=== PATIENT | female | born 1990 | race Two or more races ===

== ENCOUNTER 2019-09-03 06:24 | Emergency (ER) | payer OTHER ==
[2019-09-03 07:51] VITALS: TEMP 98; BMI 27.4
[2019-09-03] MEDS ORDERED: guaiFENesin/CODEINE 10 ML UNIT-DOSE CUPS PO ONE (08:04)
[2019-09-03] MEDS ORDERED: guaiFENesin/CODEINE 5 ML UNIT-DOSE CUPS PO ONE (08:16)
--- NOTE | 2019-09-03 08:17 | PDOC ---
History of Present Illness - General Chief Complaint: Cold Symptoms Stated Complaint: COUGH,SORE THROAT Time Seen by Provider: 09/03/19 07:37 History Source: Patient Exam Limitations: No Limitations - History of Present Illness Initial Comments: 09/03/19 08:10 HPI: 28yo F PMH gastric band 4 months ago, presenting with flu symptoms since Saturday. States she has the flu, symptoms including: sweating, cough, body aches , STREET, subjective fevers. Reports two sick contacts with similar symptoms around the same time. She also endorses some mild nausea and 2 episodes of NBNB emesis , reporting that this is not new for her and has been discussed with her surgeon since her band placement. Denies abdominal pain, any blood in emesis or rectum, or any changes in these symptoms. All: NKDA Meds: Denies PMH: Denies PSH: Gastric Band Past History - Past Medical History Allergies/Adverse Reactions: Allergies Allergy/AdvReac Type Severity Reaction Status Date / Time No Known Allergies Allergy Verified 09/03/19 08:12 Home Medications: Ambulatory Orders Guaifenesin AC [Robitussin AC -] 5 ml PO Q6H PRN #60 ml MDD 20 mL 09/03/19 Omeprazole 20 mg PO DAILY 09/03/19 COPD: No - Psycho Social/Smoking Cessation Hx Smoking History: Never smoked Hx Alcohol Use: Yes (socially) Drug/Substance Use Hx: No Review of Systems - Review of Systems Able to Perform ROS?: Yes Is the patient limited Togolese proficient: Yes Constitutional: Yes: Chills, Fever. No: Diaphoresis, Weakness HEENTM: Yes: Throat Pain. No: Recent change in vision, Nose Congestion Respiratory: Yes: Cough. No: Shortness of Breath, Stridor, Wheezing, Productive cough Cardiac (ROS): No: Chest Pain, Irregular Heart Rate, Palpitations, Syncope, Chest Tightness ABD/GI: No: Constipated, Diarrhea, Nausea, Poor Appetite, Poor Fluid Intake, Vomiting : No: Burning, Dysuria, Frequency Musculoskeletal: Yes: Muscle Pain ("bodyaches") Integumentary: No: Dryness, Pruritus, Rash Neurological: Yes: Headache. No: Numbness, Tingling, Weakness Psychiatric: No: Stressors, Change in Appetite Hematologic/Lymphatic: No: Anemia, Blood Clots, Easy Bleeding All Other Systems: Reviewed and Negative *Physical Exam - Vital Signs Last Vital Signs Temp Pulse Resp BP Pulse Ox 98 F 96 H 20 117/87 100 09/03/19 07:00 09/03/19 07:00 09/03/19 07:00 09/03/19 07:00 09/03/19 07:00 - Physical Exam 09/03/19 08:12 Vitals reviewed, AFVSS GEN: Coughing, otherwise well-appearing, appears stated age, NAD. AAOx3. HEENT: NCAT, EOMI, PERRL. Sclera anicteric, noninjected. No facial asymmetry. Moist mucous membranes. Normal voice. Trachea midline. CV: RRR, S1/S2, no murmurs / rubs / gallops appreciated. LUNG: CTAB, normal work of breathing. No wheezes, rales, rhonchi. +cough. Speaking full sentences. GI: Soft, NTND, no guarding, no rebound. No masses. Neg CVAT b/l. EXTREMITIES: 2+ distal pulses. No LE edema. No obvious deformities of all extremities. SKIN: Warm, dry, no rashes appreciated, non-jaundiced. PSYCH: Normal mood and affect. Cooperative and appropriate. NEURO: CN grossly intact. Moving all extremities well. Normal strength and sensation grossly. Medical Decision Making - Medical Decision Making 09/03/19 08:18 28yo F PMH gastric band 4 months ago, presenting with flu symptoms since Saturday. History notable for short course, sick contacts, classic influenza symptoms. Exam with normal heart, lungs, and abdomen. DDX: Influenza, other viral URI, less likely RSV, unlikely bacterial PNA. - Robitussin AC 10 mg 09/03/19 08:32 Dispo: Home Discharge - Discharge Information Problems reviewed: Yes Clinical Impression/Diagnosis: Viral URI with cough Condition: Fair Disposition: HOME - Admission No - Additional Discharge Information Prescriptions: Guaifenesin AC [Robitussin AC -] 5 ml PO Q6H PRN #60 ml MDD 20 mL PRN Reason: Cough - Follow up/Referral - Patient Discharge Instructions Patient Printed Discharge Instructions: How to Avoid a Cold or Flu, DI for Viral Upper Respiratory Infection -- Adult Additional Instructions: You were seen and evaluated in the [facility]. Please continue to take over the counter medication for your symptoms (Tylenol and Motrin for fever/pain) - Motrin may work better for your specific pain. Always take these as directed on the package labels. Do not take Dayquil/Nyquil with Tylenol as this may be dangerous for your liver. Viral illnesses self resolve with rest, symptom management, and fluids. A prescription for Robitussin has been sent to your pharmacy. Please pick this up and take it as directed for your cough. Do not operate motor vehicles while on this medication. Please follow up with your primary care doctor in the next 2-3 days for continued evaluation. Return to the ED for any new or concerning symptoms. - Post Discharge Activity Work/Back to School Note: Back to Work
--- NOTE | 2019-09-03 08:39 | PDOC ---
Attending Attestation - Resident Resident Name: Mario Bryant - ED Attending Attestation I have performed the following: I have examined & evaluated the patient, The case was reviewed & discussed with the resident, I agree w/resident's findings & plan, Exceptions are as noted - HPI HPI: 28 yo F presents with cough for past few days. +Sick contact- friend has similar symptoms, is currently in the ED for evaluation as well. She states she is having chest soreness and pain associated with the cough. Denies abd pain, vomiting, SOB. - Physicial Exam PE: GENERAL: Awake, alert, and fully oriented, in no acute distress HEAD: No signs of trauma EYES: PERRLA, EOMI, sclera anicteric, conjunctiva clear ENT: Auricles normal inspection, hearing grossly normal, nares patent, oropharynx clear without exudates. Moist mucosa NECK: Normal ROM, supple, no lymphadenopathy, JVD, or masses LUNGS: Breath sounds equal, clear to auscultation bilaterally. No wheezes, and no crackles HEART: Regular rate and rhythm, normal S1 and S2, no murmurs, rubs or gallops ABDOMEN: Soft, nontender, normoactive bowel sounds. No guarding, no rebound. No masses EXTREMITIES: Normal range of motion, no edema. No clubbing or cyanosis. No cords, erythema, or tenderness NEUROLOGICAL: Cranial nerves II through XII grossly intact. Normal speech, normal gait. Motor and sensation intact SKIN: Warm, dry, normal turgor, no rashes or lesions noted. - Medical Decision Making Sxs likely viral based on history as well as sick contact with similar symptoms. Will give robitussin AC for the cough, NSAID for soreness. DC home when improved.
[2019-09-03 08:50] VITALS: BP 109/67; PULSE 80
== END 2019-09-03 08:51 | disposition home or self-care (01) ==
LOC: JER 06:24
DX: J06.9 Acute upper respiratory infection, unspecified (principal); B97.89 Other viral agents as the cause of diseases classified elsewhere; Z98.84 Bariatric surgery status
CPT/HCPCS: 99281-25

== ENCOUNTER 2020-09-15 10:49 | Emergency (ER) | payer OTHER ==
[2020-09-15 11:12] VITALS: BP 111/58; PULSE 83; BMI 30.7
== END 2020-09-15 12:37 | disposition home or self-care (01) ==
LOC: JERFT 10:49
DX: S93.401A Sprain of unspecified ligament of right ankle, initial encounter (principal)
CPT/HCPCS: 73610-TC-RT-FY; 99283-25

== ENCOUNTER 2020-12-30 04:56 | Emergency (ER) | payer OTHER ==
[2020-12-30 05:22] VITALS: BMI 31.3
[2020-12-30] MEDS ORDERED: ACETAMINOPHEN 325 MG TABLET (FP) PO ONE (06:02)
[2020-12-30] MEDS ORDERED: ACETAMINOPHEN 325 MG TABLET (FP) ONE (06:10)
[2020-12-30 07:58] LABS: PH,URINE 5.5 (5.0-8.0); URINE APPEARANCE CLOUDY; URINE BILIRUBIN NEGATIVE (NEGATIVE); URINE COLOR YELLOW; URINE GLUCOSE (UA) NEGATIVE (NEGATIVE); URINE KETONE 2+ (NEGATIVE); URINE LEUK ESTERASE NEGATIVE (NEGATIVE); URINE NITRITE NEGATIVE (NEGATIVE); URINE PROTEIN NEGATIVE (NEGATIVE); URINE UROBILINOGEN 0.2 mg/dL (0.2-1.0)
[2020-12-30 08:22] VITALS: BP 104/53; PULSE 80; TEMP 98
== END 2020-12-30 08:22 | disposition home or self-care (01) ==
LOC: JER 04:56
DX: M25.552 Pain in left hip (principal); Z3A.13 13 weeks gestation of pregnancy
CPT/HCPCS: 76815; 81003; 87086; 99284-25

== ENCOUNTER 2021-03-18 18:54 | Emergency (ER) | payer OTHER ==
[2021-03-18 19:01] VITALS: BMI 34.9
[2021-03-18 19:53] VITALS: BP 119/56; PULSE 96; TEMP 98.7
== END 2021-03-18 22:49 | disposition home or self-care (01) ==
LOC: JER 18:54
DX: R10.2 Pelvic and perineal pain (principal)
CPT/HCPCS: 99283-25

== ENCOUNTER 2022-03-08 11:32 | Emergency (ER) | payer OTHER ==
[2022-03-08 11:47] VITALS: BP 102/68; PULSE 84; TEMP 97.6; BMI 35.0
[2022-03-08] MEDS ORDERED: SODIUM CHLORIDE 0.9% 500 ML INFUS.BAG IV ONE (12:34)
[2022-03-08] MEDS ORDERED: KETOROLAC TROMETHAMINE 30 MG/1 ML VIAL IVPB ONE (12:34)
[2022-03-08] MEDS ORDERED: METOCLOPRAMIDE HCL INJECTION 10 MG/2 ML VIAL IVPUSH ONE (12:34)
[2022-03-08] MEDS ORDERED: METOCLOPRAMIDE HCL INJECTION 10 MG/2 ML VIAL ONE (13:06)
[2022-03-08] MEDS ORDERED: KETOROLAC TROMETHAMINE 30 MG/1 ML VIAL ONE (13:06)
[2022-03-08 14:00] LABS: BASO % 0.3 % (0-2.0); EOS % 1.5 % (0-4.5); HEMATOCRIT 42.3 % (32.4-45.2); HEMOGLOBIN 13.8 GM/dL (10.7-15.3); LYMPH % 29.8 % (8-40); MCH 28.9 pg (25.7-33.7); MCHC 32.6 g/dl (32.0-36.0); MEAN CELL VOLUME 88.6 fl (80-96); MEAN PLT VOLUME 11.4 fl (7.5-11.1); MONO % 10.1 % (3.8-10.2); NEUT % 58.3 % (42.8-82.8); PLATELET COUNT 180 10^3/uL (134-434); RBC 4.77 M/mm3 (3.60-5.2); RDW 12.8 % (11.6-15.6); WHITE BLOOD COUNT 5.2 K/mm3 (4.0-10.0)
[2022-03-08 14:04] LABS: EPI CELLS >36 /uL (0-25.1); HYALINE CASTS 14 /uL (0-3.1); PH,URINE 5.5 (5.0-8.0); URINE APPEARANCE CLOUDY; URINE BACTERIA 278 /uL (0-1359); URINE BILIRUBIN NEGATIVE (NEGATIVE); URINE COLOR DK YELLOW; URINE GLUCOSE (UA) NEGATIVE (NEGATIVE); URINE KETONE 1+ (NEGATIVE); URINE LEUK ESTERASE NEGATIVE (NEGATIVE); URINE NITRITE NEGATIVE (NEGATIVE); URINE PROTEIN 2+ (NEGATIVE); URINE RBC 16 /uL (0-23.9)
[2022-03-08 14:05] LABS: HCG,QUALITATIVE URINE Negative
[2022-03-08 14:18] LABS: CALCIUM 9.7 mg/dL (8.5-10.1)
[2022-03-08 14:20] LABS: URINE WBC 63.3 /uL (0-25.8)
[2022-03-08 14:22] LABS: CREATININE 0.9 mg/dL (0.55-1.3)
[2022-03-08 14:23] LABS: TOT PROT 7.9 g/dl (6.4-8.2)
[2022-03-08 14:24] LABS: BILIRUBIN,TOTAL 0.8 mg/dL (0.2-1)
== END 2022-03-08 16:09 | disposition home or self-care (01) ==
LOC: JER 11:32
PROC: 3E0233Z Introduction of Anti-inflammatory into Muscle, Percutaneous Approach (ICD-10-PCS; principal; 2022-03-08)
PROC: 3E033NZ Introduction of Analgesics, Hypnotics, Sedatives into Peripheral Vein, Percutaneous Approach (ICD-10-PCS; 2022-03-08)
DX: R51.9 Headache, unspecified (principal)
CPT/HCPCS: 36415; 80053; 81003; 84703; 85025; 87086; 99284-25

== ENCOUNTER 2022-04-14 21:28 | Inpatient (IN) | payer OTHER ==
[2022-04-14] MEDS ORDERED: FAMOTIDINE 20 MG/50 ML IVPB 20 MG/50 ML MG IVPB ONE ×2 (23:00→23:39)
[2022-04-14] MEDS ORDERED: MAG HYDROX/AL HYDROX/SIMETH 30 ML UNIT-DOSE CUP PO ONE (23:00)
[2022-04-14] MEDS ORDERED: SODIUM CHLORIDE 0.9% 500 ML INFUS.BAG IV ONE (23:39)
[2022-04-14] MEDS ORDERED: MAG HYDROX/AL HYDROX/SIMETH 30 ML UNIT-DOSE CUP ONE (23:39)
[2022-04-15 00:46] LABS: BASO % 0.3 % (0-2.0); EOS % 0.9 % (0-4.5); HEMATOCRIT 37.1 % (32.4-45.2); HEMOGLOBIN 12.2 GM/dL (10.7-15.3); LYMPH % 26.6 % (8-40); MCHC 32.9 g/dl (32.0-36.0); MEAN CELL VOLUME 88.2 fl (80-96); MEAN PLT VOLUME 10.1 fl (7.5-11.1); MONO % 6.3 % (3.8-10.2); NEUT % 65.9 % (42.8-82.8); PLATELET COUNT 170 10^3/uL (134-434); RDW 13.3 % (11.6-15.6)
[2022-04-15 01:07] LABS: ALBUMIN 3.6 g/dl (3.4-5.0); BLOOD UREA NITROGEN 13.5 mg/dL (7-18); CALCIUM 9.4 mg/dL (8.5-10.1)
[2022-04-15 01:10] LABS: CREATININE 0.8 mg/dL (0.55-1.3)
[2022-04-15 01:11] LABS: BILIRUBIN,TOTAL 0.4 mg/dL (0.2-1); TOT PROT 6.9 g/dl (6.4-8.2)
[2022-04-15] MEDS ORDERED: LACTATED RINGERS SOLUTION 1000 ML INFUS.BAG IV ONE ×2 (03:53→08:00)
[2022-04-15] MEDS ORDERED: LACTATED RINGERS SOLUTION 1,000 ML/1,000 ML INFUS.BAG IV SCH ×3 (04:45→11:00)
[2022-04-15] MEDS ORDERED: ACETAMINOPHEN 325 MG TABLET (FP) PO PRN (05:19)
[2022-04-15 07:48] LABS: BASO % 0.2 % (0-2.0); EOS % 0.9 % (0-4.5); HEMATOCRIT 37.8 % (32.4-45.2); HEMOGLOBIN 12.1 GM/dL (10.7-15.3); LYMPH % 29.8 % (8-40); MCH 28.3 pg (25.7-33.7); MCHC 32.1 g/dl (32.0-36.0); MEAN CELL VOLUME 88.4 fl (80-96); MEAN PLT VOLUME 10.4 fl (7.5-11.1); MONO % 9.2 % (3.8-10.2); NEUT % 59.9 % (42.8-82.8); PLATELET COUNT 156 10^3/uL (134-434); RBC 4.28 M/mm3 (3.60-5.2); RDW 13.3 % (11.6-15.6); WHITE BLOOD COUNT 4.8 K/mm3 (4.0-10.0)
[2022-04-15 08:09] LABS: ALBUMIN 3.2 g/dl (3.4-5.0); BLOOD UREA NITROGEN 8.4 mg/dL (7-18); CALCIUM 8.9 mg/dL (8.5-10.1); MAGNESIUM 1.7 mg/dL (1.8-2.4)
[2022-04-15 08:12] LABS: CREATININE 0.6 mg/dL (0.55-1.3)
[2022-04-15 08:13] LABS: PHOSPHOROUS 3.3 mg/dL (2.5-4.9)
[2022-04-15 08:14] LABS: BILIRUBIN,TOTAL 0.6 mg/dL (0.2-1); TOT PROT 6.2 g/dl (6.4-8.2)
[2022-04-15 09:48] LABS: EPI CELLS 21 /uL (0-25.1); HYALINE CASTS 0 /uL (0-3.1); PH,URINE 7.5 (5.0-8.0); URINE APPEARANCE CLEAR; URINE BACTERIA 163 /uL (0-1359); URINE BILIRUBIN NEGATIVE (NEGATIVE); URINE COLOR YELLOW; URINE GLUCOSE (UA) NEGATIVE (NEGATIVE); URINE KETONE NEGATIVE (NEGATIVE); URINE LEUK ESTERASE 1+ (NEGATIVE); URINE NITRITE NEGATIVE (NEGATIVE); URINE PROTEIN NEGATIVE (NEGATIVE); URINE RBC 3 /uL (0-23.9); URINE UROBILINOGEN 0.2 mg/dL (0.2-1.0); URINE WBC 18 /uL (0-25.8)
[2022-04-15] MEDS ORDERED: ENOXAPARIN NA (PORCINE) 40 MG/0.4 ML DISP.SYRIN SQ ONE (10:42)
[2022-04-15] MEDS: ENOXAPARIN NA (PORCINE) 40 MG/0.4 ML DISP.SYRIN SQ SCH (10:47)
[2022-04-15] MEDS ORDERED: POTASSIUM CHLORIDE TABS 20 MEQ TABLET.ER (FP) PO ONE (12:23)
[2022-04-15 15:16] VITALS: BMI 35.2
[2022-04-15] MEDS: LACTATED RINGERS SOLUTION 1,000 ML/1,000 ML INFUS.BAG IV SCH ×2 (15:38→20:28)
[2022-04-16] MEDS: LACTATED RINGERS SOLUTION 1,000 ML/1,000 ML INFUS.BAG IV SCH (03:06)
[2022-04-16] MEDS ORDERED: PANTOPRAZOLE 20 MG TABLET PO SCH (07:00)
[2022-04-16 09:21] LABS: HEMATOCRIT 38.9 % (32.4-45.2); HEMOGLOBIN 12.8 GM/dL (10.7-15.3); MCH 29.1 pg (25.7-33.7); MCHC 33.1 g/dl (32.0-36.0); MEAN CELL VOLUME 87.9 fl (80-96); MEAN PLT VOLUME 10.3 fl (7.5-11.1); PLATELET COUNT 152 10^3/uL (134-434); RBC 4.42 M/mm3 (3.60-5.2); RDW 13.2 % (11.6-15.6)
[2022-04-16 09:24] LABS: INR 1.08 (0.83-1.09); PROTHROMBIN TIME (PATIENT) 12.4 SEC (9.7-13.0)
[2022-04-16 09:45] LABS: ALBUMIN 3.4 g/dl (3.4-5.0); CALCIUM 9.3 mg/dL (8.5-10.1)
[2022-04-16 09:47] LABS: CREATININE 0.6 mg/dL (0.55-1.3)
[2022-04-16 09:49] LABS: BILIRUBIN,TOTAL 1.1 mg/dL (0.2-1)
[2022-04-16 09:50] LABS: TOT PROT 6.5 g/dl (6.4-8.2)
[2022-04-16] MEDS: ENOXAPARIN NA (PORCINE) 40 MG/0.4 ML DISP.SYRIN SQ SCH (10:18)
[2022-04-16 12:25] VITALS: RESP 18
[2022-04-16] MEDS ORDERED: LACTATED RINGERS SOLUTION 1,000 ML/1,000 ML INFUS.BAG IV SCH (14:11)
[2022-04-16 14:37] VITALS: TEMP 98.1
[2022-04-16 20:46] VITALS: BP 128/76; PULSE 88
== END 2022-04-16 21:53 | disposition short-term general hospital (02) | DRG 862 ==
LOC: JER 21:28 → JERBED 04-15 04:36 → J6S 04-15 13:12
PROVIDERS: ADMIT Internal Medicine; ATTEND Internal Medicine
DX: T85.848A Pain due to other internal prosthetic devices, implants and grafts, initial encounter (principal); M25.512 Pain in left shoulder; K85.90 Acute pancreatitis without necrosis or infection, unspecified; K21.9 Gastro-esophageal reflux disease without esophagitis; E66.9 Obesity, unspecified; Z68.35 Body mass index [BMI] 35.0-35.9, adult; R10.12 Left upper quadrant pain; Y83.8 Other surgical procedures as the cause of abnormal reaction of the patient, or of later complication, without mention of misadventure at the time of the procedure
CPT/HCPCS: 36415; 71045-TC-FY; 74177-TC; 76705-TC; 80053; 80061; 81003; 82150; 83036; 83605; 83690; 83735; 84100; 84703; 85025; 85027; 85610; 86850; 86900; 86901; 93005; 93010; 99285-25; C9803-CS; Q9967; U0003; U0005

== ENCOUNTER 2023-03-12 05:37 | Inpatient (IN) | payer OTHER ==
[2023-03-12] MEDS ORDERED: MIDAZOLAM HCL 2 MG/2 ML SINGLE DOSE VIAL ONE (13:10)
[2023-03-12] MEDS ORDERED: ACETAMINOPHEN 325 MG TABLET (FP) PO PRN (13:30)
[2023-03-12 15:29] VITALS: BMI 35.9
[2023-03-12 17:57] LABS: HEMATOCRIT 42.7 % (32.4-45.2); MCH 28.2 pg (25.7-33.7); MCHC 32.8 g/dl (32.0-36.0); MEAN CELL VOLUME 86.1 fl (80-96); PLATELET COUNT 166 10^3/uL (134-434); RBC 4.96 M/mm3 (3.60-5.2); RDW 13.3 % (11.6-15.6); WHITE BLOOD COUNT 7.2 K/mm3 (4.0-10.0)
[2023-03-12 18:16] LABS: POTASSIUM 4.2 mmol/L (3.5-5.1)
[2023-03-12 18:18] LABS: ALBUMIN 3.8 g/dl (3.4-5.0); BLOOD UREA NITROGEN 9.9 mg/dL (7-18); CALCIUM 8.9 mg/dL (8.5-10.1)
[2023-03-12 18:20] LABS: INR 0.99 (0.83-1.09); PROTHROMBIN TIME (PATIENT) 11.5 SEC (9.7-13.0)
[2023-03-12 18:21] LABS: CREATININE 0.7 mg/dL (0.55-1.3)
[2023-03-12 18:23] LABS: BILIRUBIN,TOTAL 0.6 mg/dL (0.2-1); TOT PROT 7.7 g/dl (6.4-8.2)
[2023-03-13] MEDS ORDERED: PANTOPRAZOLE 20 MG TABLET PO SCH (07:00)
[2023-03-13] MEDS ORDERED: LACTATED RINGERS SOLUTION 1,000 ML/1,000 ML INFUS.BAG IV SCH (07:45)
[2023-03-13] MEDS ORDERED: BUPIVACAINE HCL/PF 0.25% (2.5MG/ML) 10 ML VIAL ONE (12:58)
[2023-03-13] MEDS ORDERED: HEPARIN NA (PORCINE) 5,000 UNITS/ML 1ML VIAL ONE (12:59)
[2023-03-13] MEDS ORDERED: PROPOFOL 40 ML ONE (13:27)
[2023-03-13] MEDS ORDERED: MIDAZOLAM HCL 2 MG/2 ML SINGLE DOSE VIAL ONE (13:28)
[2023-03-13] MEDS ORDERED: LIDOCAINE HCL/PF 2% SDV 5ML VIAL ONE (13:28)
[2023-03-13] MEDS ORDERED: LACTATED RINGERS SOLUTION 1,000 ML IV SCH (13:30)
[2023-03-13] MEDS ORDERED: cefOXitin SODIUM 2 GM VIAL (RESTRICTED TO ID) IVPB ONE (13:38)
[2023-03-13] MEDS ORDERED: ROCURONIUM BROMIDE 50 MG/5 ML SYRINGE ONE ×2 (13:49→15:01)
[2023-03-13] MEDS ORDERED: BUPIVACAINE HCL/PF 0.25% (2.5MG/ML) 10 ML VIAL IJ ONE ×2 (14:09)
[2023-03-13] MEDS ORDERED: SUGAMMADEX SODIUM 200 MG/2 ML VIAL ONE (15:32)
[2023-03-13] MEDS ORDERED: ONDANSETRON 4 MG/2 ML VIAL ONE (16:53)
[2023-03-13] MEDS ORDERED: ONDANSETRON 4 MG/2 ML VIAL IVPUSH ONE (16:55)
[2023-03-13] MEDS ORDERED: METOCLOPRAMIDE HCL INJECTION 10 MG/2 ML VIAL IVPUSH ONE (17:06)
[2023-03-13] MEDS ORDERED: ACETAMINOPHEN 1000 MG/100 ML BAG IVPB ONE (17:23)
[2023-03-13] MEDS ORDERED: ONDANSETRON 4 MG/2 ML VIAL IVPUSH PRN (17:23)
[2023-03-13] MEDS ORDERED: METOCLOPRAMIDE HCL INJECTION 10 MG/2 ML VIAL ONE (17:29)
[2023-03-13] MEDS ORDERED: KETOROLAC TROMETHAMINE 30 MG/1 ML VIAL ONE (17:36)
[2023-03-13] MEDS: ACETAMINOPHEN 650 MG/20.3 ML ORAL SOLUTION (CUPS) PO SCH ×2 (17:37→22:20)
[2023-03-13] MEDS: KETOROLAC TROMETHAMINE 30 MG/1 ML VIAL IVPUSH SCH (17:49)
[2023-03-13] MEDS: LACTATED RINGERS SOLUTION 1,000 ML/1,000 ML INFUS.BAG IV SCH (18:54)
[2023-03-14] MEDS: KETOROLAC TROMETHAMINE 30 MG/1 ML VIAL IVPUSH SCH ×2 (01:28→10:31)
[2023-03-14] MEDS: ACETAMINOPHEN 650 MG/20.3 ML ORAL SOLUTION (CUPS) PO SCH ×5 (01:28→18:10)
[2023-03-14] MEDS: LACTATED RINGERS SOLUTION 1,000 ML/1,000 ML INFUS.BAG IV SCH (08:53)
[2023-03-14 09:58] LABS: HEMATOCRIT 38.2 % (32.4-45.2); HEMOGLOBIN 12.7 GM/dL (10.7-15.3); MCH 28.3 pg (25.7-33.7); MCHC 33.1 g/dl (32.0-36.0); MEAN CELL VOLUME 85.5 fl (80-96); MEAN PLT VOLUME 9.7 fl (7.5-11.1); PLATELET COUNT 190 10^3/uL (134-434); RBC 4.47 M/mm3 (3.60-5.2); RDW 13.4 % (11.6-15.6); WHITE BLOOD COUNT 12.9 K/mm3 (4.0-10.0)
[2023-03-14] MEDS ORDERED: PANTOPRAZOLE 20 MG TABLET PO SCH (10:00)
[2023-03-14] MEDS: ENOXAPARIN NA (PORCINE) 40 MG/0.4 ML DISP.SYRIN SQ SCH (10:30)
[2023-03-14] MEDS: PANTOPRAZOLE 40 MG TABLET PO SCH (10:30)
[2023-03-14 11:08] LABS: CALCIUM 8.6 mg/dL (8.5-10.1)
[2023-03-14 11:09] LABS: ALBUMIN 3.5 g/dl (3.4-5.0); BLOOD UREA NITROGEN 8.9 mg/dL (7-18)
[2023-03-14 11:12] LABS: CREATININE 0.7 mg/dL (0.55-1.3)
[2023-03-14 11:13] LABS: BILIRUBIN,TOTAL 1.2 mg/dL (0.2-1)
[2023-03-14 11:14] LABS: TOT PROT 7.2 g/dl (6.4-8.2)
[2023-03-15] MEDS: ACETAMINOPHEN 650 MG/20.3 ML ORAL SOLUTION (CUPS) PO SCH ×6 (00:08→23:23)
[2023-03-15 10:06] LABS: BASO % 0.1 % (0-2.0); EOS % 0.2 % (0-4.5); HEMATOCRIT 35.7 % (32.4-45.2); HEMOGLOBIN 11.7 GM/dL (10.7-15.3); LYMPH % 6.8 % (8-40); MCH 28.6 pg (25.7-33.7); MCHC 32.7 g/dl (32.0-36.0); MEAN CELL VOLUME 87.6 fl (80-96); MEAN PLT VOLUME 9.8 fl (7.5-11.1); MONO % 5.2 % (3.8-10.2); NEUT % 87.7 % (42.8-82.8); PLATELET COUNT 163 10^3/uL (134-434); RBC 4.08 M/mm3 (3.60-5.2); RDW 13.4 % (11.6-15.6)
[2023-03-15 10:27] LABS: POTASSIUM 3.7 mmol/L (3.5-5.1)
[2023-03-15 10:41] LABS: CALCIUM 8.4 mg/dL (8.5-10.1)
[2023-03-15 10:42] LABS: ALBUMIN 3.2 g/dl (3.4-5.0); BLOOD UREA NITROGEN 8.7 mg/dL (7-18)
[2023-03-15 10:45] LABS: CREATININE 0.6 mg/dL (0.55-1.3)
[2023-03-15 10:47] LABS: TOT PROT 6.7 g/dl (6.4-8.2)
[2023-03-15] MEDS: PANTOPRAZOLE 40 MG TABLET PO SCH (11:11)
[2023-03-15] MEDS: ENOXAPARIN NA (PORCINE) 40 MG/0.4 ML DISP.SYRIN SQ SCH (11:11)
[2023-03-15] MEDS ORDERED: oxyCODONE HCL 5 MG TABLET PO ONE (21:55)
[2023-03-16] MEDS: ACETAMINOPHEN 650 MG/20.3 ML ORAL SOLUTION (CUPS) PO SCH ×4 (04:02→14:27)
[2023-03-16] MEDS: PANTOPRAZOLE 40 MG TABLET PO SCH (06:53)
[2023-03-16] MEDS: ENOXAPARIN NA (PORCINE) 40 MG/0.4 ML DISP.SYRIN SQ SCH (10:46)
[2023-03-16 13:58] VITALS: RESP 16
[2023-03-16 15:54] VITALS: BP 122/57; PULSE 91; TEMP 97.2
== END 2023-03-16 16:00 | disposition home or self-care (01) | DRG 222 ==
LOC: JASU-ENDO 05:37 → J2C 13:30 → J6S 14:44
PROVIDERS: ADMIT Internal Medicine; ATTEND Internal Medicine
PROC: 0D968ZZ Drainage of Stomach, Via Natural or Artificial Opening Endoscopic (ICD-10-PCS; principal; 2023-03-12 11:30)
PROC: 0DC64ZZ Extirpation of Matter from Stomach, Percutaneous Endoscopic Approach (ICD-10-PCS; 2023-03-13)
DX: T18.2XXA Foreign body in stomach, initial encounter (principal); E66.9 Obesity, unspecified; L94.2 Calcinosis cutis; Z68.35 Body mass index [BMI] 35.0-35.9, adult; K29.50 Unspecified chronic gastritis without bleeding
CPT/HCPCS: 36415; 80048; 80053; 81025; 85025; 85027; 85610; 85730; 86850; 86900; 86901; 88300-TC; 88307-TC; 93005; 93010; 94010; 94760; J1644